=== PATIENT | female | born 2000 | race Caucasian/White ===

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

== ENCOUNTER 2020-09-27 08:31 | Emergency (ER) | payer SELFPAY ==
[2020-09-27] MEDS ORDERED: Ondansetron ODT 4 MG TAB ONE (09:05)
[2020-09-27 16:21] LABS: SARS-CoV-2 PCR by NAA Not Detected (NotDetected)
== END 2020-09-27 09:29 | disposition home or self-care (01) ==
LOC: ERS 08:31
DX: J02.9 Acute pharyngitis, unspecified (principal); R11.2 Nausea with vomiting, unspecified; Z20.822 Contact with and (suspected) exposure to COVID-19
CPT/HCPCS: 87635; 99283; Q0162; U0003; U0005